=== PATIENT | male | born 1980 | race Caucasian/White ===

== ENCOUNTER 2019-01-20 19:41 | Emergency (ER) | payer OTHER ==
[~2019-01-20] VITALS: Ht 193 cm; Wt 123.0 kg
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
[2019-01-20] MEDS ORDERED: FLUORESCEIN (FLUOR-I-STRIPS) 1 MG STRP ONE (20:00)
[2019-01-20] MEDS ORDERED: TETRACAINE 0.5% OPHTH SOLN 4 ML BTL (SINGLE DOSE ONLY) OP ONE (20:00)
[2019-01-20] MEDS ORDERED: RX-GENTAMICIN SULFATE 0.3% OP 5 ML BTL OD STA (20:13)
[2019-01-20 20:29] VITALS: BP 138/89
== END 2019-01-20 20:29 | disposition home or self-care (01) ==
LOC: ER FS 19:46
DX: S05.01XA Injury of conjunctiva and corneal abrasion without foreign body, right eye, initial encounter (principal); W22.8XXA Striking against or struck by other objects, initial encounter
CPT/HCPCS: 99283